=== PATIENT | female | born 1965 | race Caucasian/White ===

== ENCOUNTER → 2016-12-12 | Outpatient (CLI) | payer BC ==
--- NOTE | 2016-12-12 10:06 | MRI ---
STUDY: MRI OF THE BRAIN WITHOUT GADOLINIUM HISTORY: TIA due to embolism. Numbness and weakness on the left side of body. Blurred vision. Technique: Multiplanar multi-sequence MRI of the brain was obtained utilizing standard departmental protocol. Sagittal and axial T1, axial T2, FLAIR, diffusion (DWI/ADC) images through the brain were performed. Comparison: None. Findings: The sulci, cisterns and ventricles are age appropriate. There are several foci of T2 prolongation in the left cerebellar hemisphere. This is a nonspecific finding which likely represents microangiopat hic change in a patient of this age. There is no evidence of acute territorial infarction, hemorrhage, mass, mass effect, or midline shif t. There are no abnormal intra-axial or extra-axial fluid collections. The major intracranial vascular flow voids appear intact. The right vertebral artery appears dominan t. IMPRESSION: 1. No evidence of acute intracranial abnormality. 2. Nonspecific white matter change in the left cerebellar hemisphere as described. This is a somewh at unusual distribution for a systemic predisposing condition such as hypertension or diabetes, and raises some questions regarding underlying vasculature to this region. Correlation with MRA is recom mended. Reported By:
--- NOTE | 2016-12-12 10:08 | MRI ---
STUDY: MRA OF THE BRAIN HISTORY: TIA due to embolism. Numbness and weakness on the left side of body. Blurred vision. Comparison: Brain MRI from December 12, 2016. Technique: 3D [id number] imaging of the intracranial circulation was performed. Findings: 3D [id number] MRA examination shows normal flow related enhancement in the major intracranial ar teries. There is no evidence of hemodynamically significant stenosis or aneurysm. There are bilatera l posterior communicating arteries. The right vertebral artery is dominant. Normal bilateral PICAs a re identified. IMPRESSION: 1. Normal MRA of the brain. Reported By:
== END ==
LOC: RAD 08:04
PROVIDERS: ATTEND Psychiatry & Neurology Neurology
DX: G45.8 Other transient cerebral ischemic attacks and related syndromes (principal)
CPT/HCPCS: 70544; 70551